=== PATIENT | male | born 1930 | race Caucasian/White ===

== ENCOUNTER 2021-11-17 20:38 | Inpatient (IN) | payer OTHER ==
[~2021-11-17] VITALS: Ht 167.6 cm; Wt 67.1 kg
[2021-11-17 20:38] VITALS: BP 109/72
--- NOTE | 2021-11-17 20:42 | NUR ---
PT XIMENA ALS. TAKEN TO BED 11
--- NOTE | 2021-11-17 20:43 | NUR ---
er assessing pt
--- NOTE | 2021-11-17 20:51 | NUR ---
slab stripper and x ray at bedside
--- NOTE | 2021-11-17 21:13 | NUR ---
PT TAKEN TO CT
--- NOTE | 2021-11-17 21:25 | NUR ---
PT RETURN FROM CT
[2021-11-17 21:37] LABS: BASOPHILS # (AUTO) 0.1 K/uL (0.00-0.22); BASOPHILS % (AUTO) 0.4 % (0.0-2.0); HEMATOCRIT 41.5 % (36-52); HEMOGLOBIN 13.7 g/dL (12.0-18.0); LYMPHOCYTES # (AUTO) 1.3 K/uL (2.0-11.5); LYMPHOCYTES % (AUTO) 5.9 % (20.5-51.1); MEAN CORPUSCULAR HEMOGLOBIN 29 pg (27-31); MEAN CORPUSCULAR HGB CONC 33 g/dL (33-37); MEAN CORPUSCULAR VOLUME 87.1 fL (80-94); MONOCYTES # (AUTO) 1.7 K/uL (0.8-1.0); MONOCYTES % (AUTO) 7.7 % (1.7-9.3); NEUTROPHILS # (AUTO) 19.2 K/uL (1.8-7.7); PLATELET COUNT (AUTO) 260 K/uL (140-450); RED BLOOD CELL COUNT(AUTO) 4.77 MIL/uL (4.20-6.10); RED CELL DISTRIBUTION WIDTH 14.6 % (11.6-13.7); WHITE BLOOD COUNT (AUTO) 22.4 K/uL (4.8-10.8)
[2021-11-17 22:00] LABS: ALBUMIN 2.7 g/dL (3.4-5.0); ANION GAP 14.4 (8-16); ASPARTATE AMINOTRANSFERASE 22 U/L (15-37); CARBON DIOXIDE 22.4 mmol/L (21-32); CHLORIDE 101 mmol/L (98-107); CREATININE 2.5 mg/dL (0.6-1.3); GLUCOSE 140 mg/dL (74-106); POTASSIUM 4.8 mmol/L (3.5-5.1); SODIUM SERUM 133 mmol/L (136-145); TOTAL BILIRUBIN 0.5 mg/dL (0.0-1.0); UREA NITROGEN, BLOOD 59 mg/dL (7-18)
--- NOTE | 2021-11-17 22:38 | NUR ---
89 Y/O MALE BIBA FROM HOME, C/O SOB XTODAY. PT STATE HE HAS BEEN PROGRESSIVELY WEAK FOR THE PAST 2 DAYS. PT IS A/OX4, GCS-15; UNLABORED BREATHING AND SPEAKING IN FULL SENTENCES, LUNGS CLEAR, + PROGRESSIVE COUGH, PULSOX 88 W/O SUPP O2. PER EMS PT PLACED ON 2 L/MIN VIA NC. SKIN IS PINK/WARM/DIAPHORETIC. PT NORMALLY USES WALKER BUT DUE TO WEAKNESS CANNOT AMBULATE. PT IS INCONTINENT X2. - FEVER OR CP. PT SEATED IN BED WITH HOB RAISED, BED IN LOEWEST POSITION, AND RAILS UP X2. FAMILY DOES NOT HAVE A PHONE. PT PICKED UP BY EMS AT [address] [facility], [id number] HX: COLON CA NKA MED: METOPROLOL, HCTZ, LIPITOR
[2021-11-17] MEDS ORDERED: NACL 0.9% 1,000 ML IV ONE (23:45)
[2021-11-17] MEDS ORDERED: cefTRIAXone 1,000 MG VIAL ONE (23:54)
--- NOTE | 2021-11-18 00:30 | NUR ---
ELSIE/MAXIMINO SWABBED AND HANDED TO BOTTOM BUFFER
--- NOTE | 2021-11-18 00:36 | NUR ---
RIKI FROM [facility] CALLED TO ASK FOR CLINICAL INFORMATION. FAX
--- NOTE | 2021-11-18 00:45 | NUR ---
BRIDAL CONSULTANT AT BEDSIDE
--- NOTE | 2021-11-18 00:55 | NUR ---
RECONCILE MEDS: UNABLE TO OBTAIN. PT IS A POOR HISTORIAN AND DOES NOT HAVE MED ON PERSON.
--- NOTE | 2021-11-18 00:57 | NUR ---
PT HAS OSTOMY ON HIS RLQ. PT STATES HE MOSTLY PRODUCES URINE THROUGH HIS OSTOMY DUE TO BLADDER REMOVAL SX.
[2021-11-18 03:21] LABS: APPEARANCE,URINE HAZY (CLEAR); BILIRUBIN,URINE NEGATIVE (NEGATIVE); BLOOD, URINE 3+ (NEGATIVE); COLOR,URINE YELLOW (YELLOW); LEUKOCYTE ESTERASE ,URINE 2+ (NEGATIVE); NITRITE, URINE POSITIVE (NEGATIVE); UGLUCOSE NEGATIVE (NEGATIVE)
[2021-11-18 03:36] LABS: RBC,URINE 50-80 /HPF (0-5)
[2021-11-18] MEDS ORDERED: ACETAMINOPHEN 325 MG TAB PO PRN (05:25)
[2021-11-18] MEDS ORDERED: ONDANSETRON 4 MG/2 ML VIAL IVP PRN (05:25)
[2021-11-18] MEDS: NACL 0.9% 1,000 ML IV SCH ×2 (05:55→21:17)
[2021-11-18] MEDS: hydrALAZINE 20 MG/ML VIAL IVP PRN ×2 (05:57→12:52)
[2021-11-18] MEDS ORDERED: PIPERACILLIN/TAZOBACTAM 3.375 GM in DEXTROSE 5% 50 ML IV SCH (06:00)
[2021-11-18] MEDS ORDERED: PIPERACILLIN/TAZOBACTAM 2.25 GM VIAL IV ONE (06:04)
[2021-11-18] MEDS: PIPERACILLIN/TAZOBACTAM 2.25 GM in DEXTROSE 5% 50 ML IV SCH ×2 (06:11→14:00)
--- NOTE | 2021-11-18 07:22 | NUR ---
GAVE TRANSFER OF CARE REPORT TO ARIADNE HERMAN
[2021-11-18 08:04] LABS: BASOPHILS % (AUTO) 0.2 % (0.0-2.0); HEMATOCRIT 40.6 % (36-52); HEMOGLOBIN 13.3 g/dL (12.0-18.0); LYMPHOCYTES # (AUTO) 0.5 K/uL (2.0-11.5); LYMPHOCYTES % (AUTO) 2.8 % (20.5-51.1); MEAN CORPUSCULAR HEMOGLOBIN 29 pg (27-31); MEAN CORPUSCULAR HGB CONC 33 g/dL (33-37); MEAN CORPUSCULAR VOLUME 87.7 fL (80-94); MONOCYTES # (AUTO) 1.1 K/uL (0.8-1.0); MONOCYTES % (AUTO) 5.9 % (1.7-9.3); NEUTROPHILS # (AUTO) 17.4 K/uL (1.8-7.7); NEUTROPHILS % (AUTO) 91.1 % (42.2-75.2); PLATELET COUNT (AUTO) 205 K/uL (140-450); RED BLOOD CELL COUNT(AUTO) 4.63 MIL/uL (4.20-6.10); RED CELL DISTRIBUTION WIDTH 14.9 % (11.6-13.7); WHITE BLOOD COUNT (AUTO) 19.1 K/uL (4.8-10.8)
[2021-11-18 08:10] LABS: ANION GAP 16.1 (8-16); CARBON DIOXIDE 21.2 mmol/L (21-32); CHLORIDE 106 mmol/L (98-107); CREATININE 2.4 mg/dL (0.6-1.3); GLUCOSE 138 mg/dL (74-106); POTASSIUM 4.3 mmol/L (3.5-5.1); SODIUM SERUM 139 mmol/L (136-145); UREA NITROGEN, BLOOD 60 mg/dL (7-18)
--- NOTE | 2021-11-18 08:16 | NUR ---
BEDSIDE REPORT GIVEN TO AAKASH RON FOR CONTINUATION OF CARE
--- NOTE | 2021-11-18 09:00 | NUR ---
RECEIVED REPORT FROM ER. ADMITTED 89 Y/O MALE FROM HOME WITH A CC OF SOB. ADMITTING DX OF LASHELL AND UTI. HX OF COLON CANCER. PT IS A POOR HISTORIAN AND PT'S SON ISN'T AWARE OF PT'S MEDICAL HX. PT AWAKE, AOX2, APPEARS WEAK, FOLLOWS COMMANDS, OCCASIONAL MUMBLED SPEECH. NO SOB ON 2L NC, LUNG SOUNDS DIMINISHED. NO C/O PAIN AT THIS TIME. WITH IV 22G ON LEFT UPPER CHEST. WILL START IVF NS 70CC/HR ORDERED. UROSTOMY PRESENT, DRAINING CLEAR DARK VAN URINE. ORIENTED TO HOSPITAL ENVIRONMENT. CALL LIGHT WITHIN REACH. SAFETY PRECAUTIONS IN PLACE
[2021-11-18] MEDS: hydroCHLOROthiazide 25 MG TAB PO SCH (10:38)
[2021-11-18 11:01] VITALS: BP 162/83
--- NOTE | 2021-11-18 11:20 | NUR ---
PT ASLEEP IN BED. NO APPARENT DISTRESS
--- NOTE | 2021-11-18 15:20 | NUR ---
PT ASLEEP IN BED, NO APPARENT DISTRESS
[2021-11-18 16:00] VITALS: BP 171/102
[2021-11-18] MEDS ORDERED: METOPROLOL 25 MG TAB ONE (16:54)
[2021-11-18] MEDS ORDERED: METOPROLOL 25 MG TAB PO SCH (17:10)
--- NOTE | 2021-11-18 18:00 | NUR ---
SEEN AND EXAMINED BY DR ROBBINS, ORDERS NOTED AND CARRIED OUT
--- NOTE | 2021-11-18 18:33 | NUR ---
PT AWAKE IN BED, NO C/O PAIN, NO SOB
[2021-11-18 18:45] LABS: ALBUMIN 2.5 g/dL (3.4-5.0); ANION GAP 16.1 (8-16); ASPARTATE AMINOTRANSFERASE 19 U/L (15-37); CARBON DIOXIDE 22.9 mmol/L (21-32); CHLORIDE 102 mmol/L (98-107); CREATININE 2.4 mg/dL (0.6-1.3); GLUCOSE 134 mg/dL (74-106); SODIUM SERUM 137 mmol/L (136-145); TOTAL BILIRUBIN 0.4 mg/dL (0.0-1.0); UREA NITROGEN, BLOOD 57 mg/dL (7-18)
[2021-11-18 18:54] LABS: APPEARANCE,URINE CLOUDY (CLEAR); COLOR,URINE YELLOW (YELLOW); PH,URINE 6.5 (5.0-9.0); UGLUCOSE NEGATIVE (NEGATIVE)
[2021-11-18 18:55] LABS: BILIRUBIN,URINE NEGATIVE (NEGATIVE); BLOOD, URINE 3+ (NEGATIVE); LEUKOCYTE ESTERASE ,URINE 2+ (NEGATIVE); NITRITE, URINE NEGATIVE (NEGATIVE)
[2021-11-18 18:56] LABS: RBC,URINE 20-50 /HPF (0-5); WBC,URINE TOO MANY TO COUNT /HPF (0-5)
[2021-11-18 21:00] VITALS: BP 179/85
[2021-11-18] MEDS ORDERED: MEROPENEM 1,000 MG in NACL 0.9% 50 ML IV SCH (21:00)
[2021-11-18] MEDS: SIMVASTATIN 40 MG TAB PO SCH (21:16)
[2021-11-18] MEDS: METOPROLOL 25 MG TAB PO SCH (21:16)
[2021-11-18 21:52] LABS: CREATININE,URINE RANDOM 25 mg/dL (30-125)
[2021-11-18 23:27] VITALS: BP 163/77
[2021-11-19 04:02] VITALS: BP 170/73
[2021-11-19] MEDS: hydrALAZINE 20 MG/ML VIAL IVP PRN (04:36)
--- NOTE | 2021-11-19 07:12 | NUR ---
PATIENT HAS BEEN SCREENED AND CATEGORIZED MODERATE NUTRITION RISK. PATIENT WILL BE SEEN WITHIN 3-5 DAYS OF ADMISSION. 11/20/21-11/22/21 THONG REYNAGA MS, RDN
[2021-11-19 08:00] VITALS: BP 132/75
[2021-11-19] MEDS: METOPROLOL 25 MG TAB PO SCH (09:00)
[2021-11-19] MEDS: hydroCHLOROthiazide 25 MG TAB PO SCH (09:00)
[2021-11-19] MEDS ORDERED: allopurinoL 300 MG TAB PO SCH ×2 (09:00)
[2021-11-19] MEDS: MEROPENEM 500 MG in NACL 0.9% 50 ML IV SCH ×2 (09:00→21:51)
[2021-11-19] MEDS ORDERED: cloNIDine-TTS2 0.2 MG/24 HR 1 EA PATCH TD SCH (09:00)
[2021-11-19] MEDS ORDERED: hydrALAZINE 25 MG TAB PO SCH (09:00)
[2021-11-19] MEDS: hydrALAZINE 25 MG TAB PO SCH ×2 (13:00→17:00)
[2021-11-19] MEDS: allopurinoL 100 MG TAB PO SCH (15:29)
--- NOTE | 2021-11-19 16:06 | NUR ---
P.T. NOTES P.T. EVAL COMPLETED; REFER TO EVAL FOR DETAILS.
--- NOTE | 2021-11-19 19:55 | NUR ---
RECEIVED PATIENT FROM AM SHIFT NURSE. PT SLEEPING , ON ROOM AIR. NO SOB NOTED. BREATHING EVEN UNLABORED. IVF NS INFUSING AT 70 ML/HR. UROSTOMY TUBE ON THE RIGHT SIDE DRAINING CLEAR YELLOW URINE. ALL SAFETY PRECAUTIONS ARE IN PLACE. CALL LIGHT WITHIN REACH. WILL CONTINUE TO MONITOR PT.
[2021-11-19 20:00] VITALS: BP 105/60
[2021-11-19] MEDS: METOPROLOL 50 MG TAB PO SCH (21:00)
[2021-11-19] MEDS: SIMVASTATIN 40 MG TAB PO SCH (21:51)
--- NOTE | 2021-11-19 21:56 | NUR ---
BP- 105/60 P-[address] GRAHAM WITH ORDER TO HOLD METOPROLOL FOR TONIGHT. ORDER NOTED CARRIED OUT.
--- NOTE | 2021-11-19 22:27 | NUR ---
SCHEDULED MEDICATIONS ADMINISTERED PER MD ORDER.
[2021-11-20] VITALS: BP 147/66
--- NOTE | 2021-11-20 00:30 | NUR ---
URINE SAMPLE COLLECTED SENT TO LAB.
[2021-11-20 03:22] LABS: APPEARANCE,URINE SL CLOUDY (CLEAR); BILIRUBIN,URINE NEGATIVE (NEGATIVE); BLOOD, URINE 1+ (NEGATIVE); COLOR,URINE YELLOW (YELLOW); LEUKOCYTE ESTERASE ,URINE 3+ (NEGATIVE); NITRITE, URINE NEGATIVE (NEGATIVE); PH,URINE 6.5 (5.0-9.0); UGLUCOSE NEGATIVE (NEGATIVE)
[2021-11-20 03:27] LABS: WBC,URINE TOO MANY TO COUNT /HPF (0-5)
[2021-11-20 04:00] VITALS: BP 162/69
[2021-11-20] MEDS: hydrALAZINE 20 MG/ML VIAL IVP PRN (05:02)
[2021-11-20 06:37] LABS: ALBUMIN 2.1 g/dL (3.4-5.0); ANION GAP 13.7 (8-16); ASPARTATE AMINOTRANSFERASE 10 U/L (15-37); CARBON DIOXIDE 20.4 mmol/L (21-32); CHLORIDE 109 mmol/L (98-107); CREATININE 1.8 mg/dL (0.6-1.3); GLUCOSE 95 mg/dL (74-106); MAGNESIUM 2.2 mg/dL (1.8-2.4); POTASSIUM 3.1 mmol/L (3.5-5.1); SODIUM SERUM 140 mmol/L (136-145); TOTAL BILIRUBIN 0.3 mg/dL (0.0-1.0)
[2021-11-20 06:42] LABS: UREA NITROGEN, BLOOD 65 mg/dL (7-18)
--- NOTE | 2021-11-20 06:42 | NUR ---
RECEIVED A CALL FROM [facility] (LAB) REPORTING CRITICAL LAB VALUE. NOTIFIED DR. GRAHAM, AWAITING FOR REPLY.
--- NOTE | 2021-11-20 07:15 | NUR ---
RECEIVED REPORT FROM CHIEF GUARD NURSE FOR CONTINUITY OF CARE. PT ASLEEP IN BED, EASILY AROUSABLE. BREATHING SYMMETRICAL ON ROOM AIR. WITH NIRMAL 22G ON SALINE LOCK, UROSTOMY ON RIGHT ABDOMINAL SIDE. FLACC O. CALL LIGHT WITHIN REACH. ALL SAFETY MEASURES IN PLACE.
--- NOTE | 2021-11-20 07:18 | NUR ---
BEDSIDE ENDORSEMENT GIVEN TO THE NEXT SHIFT FOR CONTINUITY OF CARE. PATIENT STABLE.
[2021-11-20 08:00] VITALS: BP 142/61
[2021-11-20] MEDS: hydroCHLOROthiazide 25 MG TAB PO SCH (08:45)
[2021-11-20] MEDS: METOPROLOL 50 MG TAB PO SCH (08:46)
[2021-11-20] MEDS: hydrALAZINE 25 MG TAB PO SCH ×3 (08:46→17:30)
[2021-11-20] MEDS: MEROPENEM 500 MG in NACL 0.9% 50 ML IV SCH ×2 (08:50→20:28)
--- NOTE | 2021-11-20 08:53 | NUR ---
SCHEDULED AM MEDICATIONS GIVEN ORDERED. NO C/O PAIN AT THIS TIME
--- NOTE | 2021-11-20 09:30 | NUR ---
LEFT MESSAGE TO DR GRAHAM REGARDING BNP 113 AND K 3.1, NO PRN FOR K. AWAITING RESPONSE
[2021-11-20 09:43] LABS: BASOPHILS % (AUTO) 0.1 % (0.0-2.0); EOSINOPHILS % (AUTO) 0.2 % (0.0-4.0); HEMATOCRIT 38.9 % (36-52); HEMOGLOBIN 12.8 g/dL (12.0-18.0); LYMPHOCYTES # (AUTO) 1.1 K/uL (2.0-11.5); LYMPHOCYTES % (AUTO) 7.2 % (20.5-51.1); MEAN CORPUSCULAR HEMOGLOBIN 29 pg (27-31); MEAN CORPUSCULAR HGB CONC 33 g/dL (33-37); MEAN CORPUSCULAR VOLUME 86.9 fL (80-94); MONOCYTES % (AUTO) 7.1 % (1.7-9.3); NEUTROPHILS # (AUTO) 12.5 K/uL (1.8-7.7); NEUTROPHILS % (AUTO) 85.4 % (42.2-75.2); PLATELET COUNT (AUTO) 244 K/uL (140-450); RED BLOOD CELL COUNT(AUTO) 4.47 MIL/uL (4.20-6.10); WHITE BLOOD COUNT (AUTO) 14.6 K/uL (4.8-10.8)
[2021-11-20 11:00] LABS: TOTAL PROTEIN URINE 63.4 MG/DL
--- NOTE | 2021-11-20 11:03 | NUR ---
PT TRANSFERRED TO [facility]
--- NOTE | 2021-11-20 11:16 | NUR ---
PHYSICAL THERAPY CO-SIGN The Physical Therapy Progress Notes documented by Sporting Goods Salesperson have been reviewed. Reviewed/Co-Signed by: Barbara Tijerina Documentation Done by: RAQUEL CASTREJON PTA Addendum: 11/20/21 at 1116 by Barbara Tijerina PT Amended: Links added.
[2021-11-20 12:00] VITALS: BP 142/67
[2021-11-20] MEDS ORDERED: POTASSIUM CHLORIDE 10 MEQ TABER PO SCH (13:05)
--- NOTE | 2021-11-20 13:07 | NUR ---
FOLLOWED UP REGARDING K, ORDER RECEIVED FOR KDUR 20MEQ.
[2021-11-20 16:00] VITALS: BP 156/70
--- NOTE | 2021-11-20 16:48 | NUR ---
PT ASLEEP IN BED. BREATHING SYMMETRICAL ON ROOM AIR. FLACC O. FREQUENT ROUNDS DONE.
--- NOTE | 2021-11-20 19:20 | NUR ---
ENDORSED PT TO SIGN SHOP SUPERVISOR NURSE FOR CONTINUITY OF CARE, IN STABLE CONDITION
--- NOTE | 2021-11-20 19:21 | NUR ---
RECEIVED PT REPORT FROM AM NURSE TALIA RN FOR CONTINUITY OF CARE. PT IS STABLE IN BED.A&OX1. RR EVEN WITH COARSE OPEN AIRWAY NO WHEEZES OR CRACKLES. HAS A PRODUCTIVE COUGH AT TIMES. DENIES PAIN. ON ROOM AIR WITH NO S/S OF ACUTE DISTRESS. GI INTACT. PT'S SKIN INTACT EXCEPT FOR UROSTOMY ON R SIDE. IV NIRMAL 22G S.L. ALL SAFETY MEASURES IN PLACE. BED IS IN LOW AND LOCKED POSITION. CALL LIGHT WITHIN REACH. ENCOURAGED TO CALL FOR ASSISTANCE. WILL CONTINUE TO MONITOR.
[2021-11-20 20:00] VITALS: BP 123/63
[2021-11-20] MEDS: LABETALOL 200 MG TAB PO SCH (20:27)
[2021-11-20] MEDS: SIMVASTATIN 40 MG TAB PO SCH (20:27)
--- NOTE | 2021-11-20 21:00 | NUR ---
HS MEDS GIVEN PT STABLE. RR EVEN AND UNLABORED WITH EQUAL CHEST RISE. ON RM AIR. CALL LIGHT WITHIN REACH . WILL CONTINUE TO MONITOR.
--- NOTE | 2021-11-20 22:14 | NUR ---
DR VERNON WROTE NEW ORDERS. FORTAZ 1000MG OBTAINED FROM ANALYTICS DIRECTOR AND HUNG PER ORDER. WILL CONTINUE TO MONITOR.
[2021-11-21] VITALS: BP 142/66
[2021-11-21 04:00] VITALS: BP 108/48
[2021-11-21 06:48] LABS: BASOPHILS % (AUTO) 0.2 % (0.0-2.0); EOSINOPHILS % (AUTO) 0.4 % (0.0-4.0); HEMOGLOBIN 12.8 g/dL (12.0-18.0); LYMPHOCYTES % (AUTO) 10.8 % (20.5-51.1); MEAN CORPUSCULAR HEMOGLOBIN 29 pg (27-31); MEAN CORPUSCULAR HGB CONC 33 g/dL (33-37); MONOCYTES # (AUTO) 0.9 K/uL (0.8-1.0); NEUTROPHILS # (AUTO) 7.6 K/uL (1.8-7.7); NEUTROPHILS % (AUTO) 79.6 % (42.2-75.2); PLATELET COUNT (AUTO) 243 K/uL (140-450); RED BLOOD CELL COUNT(AUTO) 4.49 MIL/uL (4.20-6.10); RED CELL DISTRIBUTION WIDTH 14.7 % (11.6-13.7); WHITE BLOOD COUNT (AUTO) 9.6 K/uL (4.8-10.8)
[2021-11-21 06:53] LABS: ANION GAP 14.5 (8-16); CARBON DIOXIDE 22.1 mmol/L (21-32); CHLORIDE 108 mmol/L (98-107); CREATININE 2.1 mg/dL (0.6-1.3); GLUCOSE 126 mg/dL (74-106); POTASSIUM 3.6 mmol/L (3.5-5.1); SODIUM SERUM 141 mmol/L (136-145)
[2021-11-21 06:56] LABS: UREA NITROGEN, BLOOD 70 mg/dL (7-18)
--- NOTE | 2021-11-21 07:00 | NUR ---
LAB REPORTED BUN-70H AND CREATININE- 2.1H. ENDORSE TO DAY SHIFT TO FOLLOW UP AND UPDATE DR. GRAHAM WHEN HE COMES IN. PT HAS A UTI AND VALUES ARE TRENDING UP.
--- NOTE | 2021-11-21 07:15 | NUR ---
RECEIVED REPORT FROM PLANT PACKER NURSE FOR CONTINUITY OF CARE. PT IN BED WATCHING TV AT THIS TIME. RESPIRATIONS ARE EVEN AND UNLABORED. PT IS ON ROOM AIR AT THIS TIME. NO SIGNS OF DISTRESS NOTED. PT IS ALERT AND ORIENTED X3. ABLE TO VERBALIZE NEEDS, ABLE TO FOLLOW COMMANDS. PT HAS UROSTOMY TO R SIDE. DRAINING YELLOW URINE. PT HAS SCATTERED BRUISING NOTED ON ADMISSION, AND SKIN IS INTACT. CALL LIGHT WITHIN REACH. ALL SAFETY MEASURES IN PLACE. WILL CONTINUE TO MONITOR.
[2021-11-21 08:00] VITALS: BP 145/43
[2021-11-21] MEDS: hydrALAZINE 25 MG TAB PO SCH ×3 (09:00→17:00)
[2021-11-21] MEDS: hydroCHLOROthiazide 25 MG TAB PO SCH (09:51)
[2021-11-21] MEDS: LABETALOL 200 MG TAB PO SCH ×2 (09:51→21:45)
--- NOTE | 2021-11-21 09:52 | NUR ---
ADMINISTERED SCHEDULED MEDICATIONS. EDUCATED PT ON MEDS ADMINISTERED. PT TOLERATED WELL. WILL CONTINUE TO MONITOR.
[2021-11-21] MEDS: allopurinoL 100 MG TAB PO SCH (09:53)
--- NOTE | 2021-11-21 10:50 | NUR ---
PHYSICAL THERAPY CO-SIGN The Physical Therapy Progress Notes documented by Biochemistry Specialist have been reviewed. Reviewed/Co-Signed by: Barbara Tijerina Documentation Done by: RAQUEL CASTREJON PTA Addendum: 11/21/21 at 1050 by Barbara Tijerina PT Amended: Links added.
--- NOTE | 2021-11-21 12:34 | NUR ---
DID ROUNDS ON PT. PT IN BED WATCHING TELEVISION AT THIS TIME. RESPIRATIONS ARE EVEN AND UNLABORED. NO COMPLAINTS OF PAIN OR DISCOMFORT. WILL CONTINUE TO MONITOR.
--- NOTE | 2021-11-21 13:58 | NUR ---
DC PLANNING SW ATTEMPTED TO MEET WITH PATIENT AT BEDSIDE, HOWEVER, PATIENT WAS UNABLE TO RESPOND TO SW PROMPTS. PATIENT DOES NOT HAVE AN EMERGENCY CONTACT ON FILE. SW SPOKE WITH PATIENTS NURSE WHO REPORTED SHE HAS NOT WITNESSED ANY VISITORS AT PATIENTS BEDSIDE. SW TO CALL [place] [employer] FOR A WELFARE CHECK AT PATIENTS HOME TO IDENTIFY CAREGIVER/EMERGENCY CONTACT. Addendum: 11/22/21 at 1106 by Jc JAMA SW OUTREACHED TO [facility] TO CONDUCT WELFARE CHECK TO IDENTIFY FAMILY MEMBERS/EMERGENCY CONTACT. VAN FROM [facility] REPORTED THAT THEY WOULD SEND OUT POLICE. SW/PD TO FOLLOW UP. Addendum: 11/23/21 at 1108 by Jc JAMA DC PLANNING PATIENT IS AN 89 YR OLD MALE ADMITTED TO [facility] ON 11/18 FOR UTI AND LASHELL SW MET WITH PATIENT AT BEDSIDE HOWEVER PATIENT WAS UNABLE TO PROVIDE INFORMATION NEEDED. PATIENT STRUGGLED WITH RESPONDING TO SW PROMPTS. LETTY SPOKE W/NURSES TO INQUIRE ON VISITORS FOR PATIENT PATIENT DID NOT HAVE EMERGENCY CONTACT ON FILE. LETTY CALLED [place] [employer] FOR WELFARE CHECK ON FAMILY. [place] [employer] MADE CONTACT WITH PATIENTS SON (MILLI CHOU) WHOM HE RESIDES WITH. MILLI CHOU PROVIDED PD AND SW WITH NEIGHBORS PHONE NUMBER FOR EMERGENCY CONTACT MILLI CHOU DID NOT HAVE A WORKING PHONE. PD CONDUCTED WELFARE CHECK AND DISCOVERED THAT HOME WAS IN DISARRAY, SMELLED OF URINE AND FECES. OFFICER JEFFREY REPORTED THAT HOME HAD RUNNING WATER, FOOD NECESSITIES, AND WORKING POWER. LETTY OUTREACHED TO PATIENTS NEIGHBOR, BONILLA WHO PROVIDED COLLATERAL INFORMATION. BONILLA REPORTED THAT MILLI HESS IS THE ORGANIC EXTRACTIONS TECHNICIAN FOR PATIENT AND PATIENTS SON, MILLI CHOU. BONILLA REPORTED THAT SHE HAS TRIED ASSISTING FAMILY SHE CAN HOWEVER, CAREGIVER DOES NOT PROVIDE THE REQUIRED CARE NEEDED FOR FAMILY. LAST VISIT FROM CAREGIVER WAS 5 DAYS PREVIOUS. BONILLA REPORTS THAT PATIENT REQUIRES MEDICAL ATTENTION AND VISITS WHICH CAREGIVER HAS BEEN UNABLE TO PROVIDE. BONILLA REPORTS CAREGIVER RESIDES IN [facility] AND HAS TRANSPORTATION ISSUES. BONILLA PROVIDED LETTY WITH CAREGIVER, MILLI HESS CONTACT INFO. LETTY OUTREACHED TO PATIENTS CAREGIVER, MILLI HESS WHO REPORTED THAT HE IS THE ORGANIC EXTRACTIONS TECHNICIAN FOR BOTH PATIENT AND MILLI CHOU (PATIENTS SON WHOM PATIENT RESIDES WITH). PATIENT REPORTS RESIDING IN [place] AND HAVING TRANSPORTATION ISSUES THAT STARTED IN JUL. CAREGIVER REPORTS RECEIVING HELP FROM FRIENDS IN ASSISTING WITH AIDING IN CARE. CAREGIVER REPORTED THAT PATIENT RECEIVES HOME HEALTH SERVICES WITH [facility] [phone] THAT BEGAN 6 MONTHS AGO. CAREGIVER REPORTS H.H PROVIDES CARE 1-2X WEEKLY. PATIENT REPORTS RECEIVING HELP WITH TAKING PATIENT TO DR FLOWERS AND REPORTS THAT PATIENT HAS A DR KERRYT SCHEDULED FOR 11/28/2021. CAREGIVER SELF REPORTED THAT AN APS REPORT WAS FILED IN [place] BY A NURSE WHO BELIEVED THERE WAS INADEQUATE FOOD IN THE HOME. CAREGIVER WAS UNSURE OF OUTCOME OF INVESTIGATION. CAREGIVER IS REPORTING THAT HE IS UNABLE TO PROVIDE PATIENT WITH THE CARE THAT IS NEEDED AND IS REQUESTING THAT PATIENT BE PLACED IN SNF. CM WORKING ON IDENTIFYING PLACEMENT AT THIS TIME. APS REPORT MADE BY LETTY AND SPOKE WITH ZEV AT [phone]. REFERRAL INTAKE NUMBER # [id number]
[2021-11-21] MEDS ORDERED: RENAL DOSING PER PHARMACY MC PRN (14:05)
--- NOTE | 2021-11-21 14:30 | NUR ---
DC PLANNIN YRS OLD MALE PATIENT WAS ADMITTED FROM HOME WITH A DX OF UTI, LASHELL . PATIENT HAS A HX OF COLON CA. CXR SHOWED NO ACUTE FINDINGS. RAPID COVID TEST NEGATIVE, CT HEAD SHOWED DIFFUSE CEREBRAL ATROPHY, RENAL ULTRASOUND NO HYDRONEPHROSIS. BLOOD AND URINE CULTURE PENDING. ADMINISTERED IVF, IV ABX ZOSYN AND CONTINUED HOME MEDS. CONSULTED WITH ID AND NEPHRO. DC PLAN TO RETURN HOME WHEN STABLE. CM TO FOLLOW Addendum: 11/22/21 at 1533 by Jackeline Paulino RN DC PLANNING: LETTY SPOKE WITH PT'S SON , STATED UNABLE TO TAKECARE OF HIM , REQUESTING HIS DAD TO GO TO SNF. ORDERED SNF EVAL FAXED TO [facility]. SPOKE WITH JOHANNA AT [facility] REQUESTING THE PHYSICAL THERAPY NOTES. FAXED TO [facility]. CM TO FOLLOW Addendum: 11/22/21 at 1534 by Jackeline Paulino RN DC PLANNING: FAXED THE REQUEST TO [facility]. ODELL TO FOLLOW Addendum: 11/23/21 at 1110 by Jackeline Paulino RN DC PLANNING: PATIENT IS ACCE[facility] [facility] [place] ROOM 118B. # TO GIVE REPORT [phone] RECEIVED AUTH # FOR TRANSPORT FROM HENNING AT [facility] [id number] . CALLED PT'S GRANDSON [phone] SPOKE WITH MILLI, NOTIFIED HIM THAT PATIENT IS ACCEPTED AT [facility] FOR A SHORT TERM STAY PER MILLI AGREED WITH [facility] AND GAVE TELEPHONE CONSENT FOR IM LETTER. ARRANGED TRANSPORT WITH [facility]ER[facility] GRADER TIME BETWEEN 2-3 PM. NOTIFIED LOUIS RON.
--- NOTE | 2021-11-21 15:56 | NUR ---
ASSISTED WITH CHANGING AND REPOSITIONING PT. PT TOLERATED WELL. NO COMPLAINTS OF PAIN OR DISCOMFORT. WILL CONTINUE TO MONITOR.
[2021-11-21 16:00] VITALS: BP 95/55
--- NOTE | 2021-11-21 19:01 | NUR ---
ENDORSED PT TO TANNING SALON ATTENDANT NURSE FOR CONTINUITY OF CARE. PT IS STABLE.
--- NOTE | 2021-11-21 19:03 | NUR ---
RECEIVED REPORT FROM AM NURSE FOR CONTINUITY OF CARE. PT IS AWAKE NO DISTRESS NOTED.RR EVEN AND UNLABORED WITH EQUAL CHEST RISE. NO SOB ON O2 2L/NC. ALL SAFETY MEASURES IN PLACE, IV SITE ON NIRMAL 22G. WILL CONTINUE TO MONITOR.
[2021-11-21] MEDS: SIMVASTATIN 40 MG TAB PO SCH (21:45)
--- NOTE | 2021-11-21 22:00 | NUR ---
HS MEDS GIVEN. PT REPOSITIONED FOR COMFORT. UROSTOMY IN RUQ DRAINING HAZY VAN URINE. NO ODOR. PT REMAINS IN BED. ALL SAFETY MEASURES IN PLACE. CALL LIGHT WITHIN REACH. WILL CONTINUE WITH FREQ ROUNDS.
[2021-11-22] VITALS: BP 99/44
[2021-11-22 07:23] LABS: ANION GAP 12.6 (8-16); CARBON DIOXIDE 23.1 mmol/L (21-32); CHLORIDE 109 mmol/L (98-107); CREATININE 2.2 mg/dL (0.6-1.3); GLUCOSE 93 mg/dL (74-106); POTASSIUM 3.7 mmol/L (3.5-5.1); SODIUM SERUM 141 mmol/L (136-145)
[2021-11-22 07:25] LABS: BASOPHILS # (AUTO) 0.1 K/uL (0.00-0.22); EOSINOPHILS # (AUTO) 0.6 K/uL (0-0.4); HEMOGLOBIN 11.4 g/dL (12.0-18.0); LYMPHOCYTES # (AUTO) 1.8 K/uL (2.0-11.5); MONOCYTES # (AUTO) 1.1 K/uL (0.8-1.0); NEUTROPHILS % (AUTO) 67.7 % (42.2-75.2)
--- NOTE | 2021-11-22 07:25 | NUR ---
ENDORSED REPORT TO AM NURSE FOR CONTINUITY OF CARE. PT IS STABLE.
[2021-11-22 07:27] LABS: BASOPHILS % (AUTO) 0.5 % (0.0-2.0); EOSINOPHILS % (AUTO) 5.7 % (0.0-4.0); HEMATOCRIT 34.7 % (36-52); MEAN CORPUSCULAR HEMOGLOBIN 28 pg (27-31); MEAN CORPUSCULAR HGB CONC 33 g/dL (33-37); MEAN CORPUSCULAR VOLUME 86.6 fL (80-94); MONOCYTES % (AUTO) 10.1 % (1.7-9.3); NEUTROPHILS # (AUTO) 7.5 K/uL (1.8-7.7); PLATELET COUNT (AUTO) 207 K/uL (140-450); RED BLOOD CELL COUNT(AUTO) 4.01 MIL/uL (4.20-6.10); RED CELL DISTRIBUTION WIDTH 14.6 % (11.6-13.7); WHITE BLOOD COUNT (AUTO) 11.1 K/uL (4.8-10.8)
--- NOTE | 2021-11-22 07:30 | NUR ---
RECEIVED REPORT FROM RELIEF DRILLER NURSE FOR CONTINUITY OF CARE. PATIENT AWAKE NO DISTRESS NOTED. RESPIRATION EVEN AND NOT LABORED NO SHORTNESS OF BREATH. ON 2L/MIN O2. ALL SAFETY MEASURE IN PLACE.IV SITE ON LEFT ARM SIDNEY 22.
[2021-11-22 07:32] LABS: UREA NITROGEN, BLOOD 78 mg/dL (7-18)
--- NOTE | 2021-11-22 07:32 | NUR ---
RECEIVED CALL FROM LAB FOR BUN OF 78, CR- 2.2 WAITING FOR RESPONSE.
[2021-11-22 08:00] VITALS: BP 117/50
--- NOTE | 2021-11-22 08:00 | NUR ---
PATIENT IS WITH PT AND HE SIT ON CHAIR AFTER THERAPY AND EATING BREAKFAST. CALL LIGHT WITH IN EASY REACH.
--- NOTE | 2021-11-22 08:00 | NUR ---
Patient's Plan of Care was discussed and reviewed with SWITCHBOARD WIRER: JANI FERNANDEZ
--- NOTE | 2021-11-22 09:11 | NUR ---
PHYSICAL THERAPY CO-SIGN The Physical Therapy Progress Notes documented by File Clerk have been reviewed. Reviewed/Co-Signed by: Barbara Tijerina Documentation Done by: RAQUEL CASTREJON PTA Addendum: 11/22/21 at 0912 by Barbara Tijerina PT Amended: Links added.
[2021-11-22] MEDS: hydroCHLOROthiazide 25 MG TAB PO SCH (09:35)
[2021-11-22] MEDS: LABETALOL 200 MG TAB PO SCH ×2 (09:35→21:02)
--- NOTE | 2021-11-22 09:38 | NUR ---
GIVEN ORAL MEDICATION TOLERATED WELL SITTING ON CHAIR AND WATCHING TV.
--- NOTE | 2021-11-22 09:39 | NUR ---
SEEN BY DR. BREAUX DISCONTINUE CLONIDINE AND HYDRALAZINE ORDER.
[2021-11-22] MEDS ORDERED: NACL 0.9% 1,000 ML IV SCH (12:20)
[2021-11-22] MEDS ORDERED: NACL 0.9% 500 ML IV ONE (13:00)
--- NOTE | 2021-11-22 14:22 | NUR ---
11/22/21 RD INITIAL ASSESSMENT COMPLETED PLEASE REFER TO NUTRITION ASSESSMENT UNDER CARE ACTIVITY FOR ESTIMATED NUTRITIONAL NEEDS. 1. CONTINUE REGULAR DIET TOLERATED 2. RECOMMEND NEPRO BID FOR NUTRITION SUPPORT 3. MONITOR RENAL LAB VALUES -IF ALTERED, RECOMMEND RENAL DIET 4. RD TO FOLLOW-UP 3-5 DAYS, MODERATE RISK JANA SANTAMARIA, RD
[2021-11-22 16:00] VITALS: BP 114/84
--- NOTE | 2021-11-22 16:30 | NUR ---
PATIENT ALERT ABLE TO MAKE NEEDS KNOWN RESPIRATION EVEN AND NOT LABORED NO SHORTNESS OF BREATH. PATIENT PUT IV ON RIGHT FORE ARM SIDNEY 22. IV HYDRATION STARTED.
--- NOTE | 2021-11-22 17:25 | NUR ---
GAVE REPORT TO CHRISTMAS TREE FARMER NURSE FOR CONTINUITY OF CARE.
--- NOTE | 2021-11-22 19:30 | NUR ---
GET THE REPORT FROM MORNING NURSE, PATIENT IS LYING ON BED, PATIENT IA ALERT ORIENTED X2 , CALL LIGHT IS WITHIN THE REACH, WILL CONTINUE TO MONITOR PATIENT.
[2021-11-22 20:00] VITALS: BP 111/57
--- NOTE | 2021-11-22 20:56 | NUR ---
PATIENT IS LYING ON BED, NO ANY COMPLAIN OF PAIN OR SHORTNESS OF BREATH AT THIS TIME, VITAL SIGN IS WITHIN THE NORMAL RANGE, ALL SCHEDULE MEDICATION IS GIVEN PER DOCTOR ORDER, CALL LIGHT IS WITHIN THE REACH, WILL CONTINUE TO MONITOR PATIENT.
[2021-11-22] MEDS: SIMVASTATIN 40 MG TAB PO SCH (21:02)
--- NOTE | 2021-11-23 00:11 | NUR ---
PATIENT IS LYING ON BED, NO ANY COMPLAIN OF PAIN OR SHORTNESS OF BREATH AT THIS TIME, CALL LIGHT IS WITHIN THE REACH, WILL CONTINUE TO MONITOR PATIENT
[2021-11-23 04:00] VITALS: BP 115/44
--- NOTE | 2021-11-23 04:07 | NUR ---
PATIENT IS LYING ON BED, VITAL SIGN IS WITHIN THE NORMAL RANGE , NO ANY COMPLAIN OF PAIN OR SHORTNESS OF BREATH AT THIS TIME,CALL LIGHT IS WITHIN THE REACH, WILL CONTINUE TO MONITOR PATIENT.
--- NOTE | 2021-11-23 05:48 | NUR ---
ALL SCHEDULE MEDICATION IS GIVEN PER DOCTOR ORDER, CALL LIGHT IS WITHIN THE REACH, WILL CONTINUE TO MONITOR PATIENT.
--- NOTE | 2021-11-23 07:17 | NUR ---
GAVE REPORT TO MORNING NURSE LOUIS FOR CONTINUOS OF CARE, PATIENT IS STABLE.
--- NOTE | 2021-11-23 07:18 | NUR ---
RECEIVED REPORT FROM WAIST PRESSER NURSE FOR CONTINUITY OF CARE. PT IS AWAKE, IN BED. BREATHING EVEN AND UNLABORED AT ROOM AIR. IV SITE AT RFA 22G. PT HAS UROSTOMY BAG, DRAINED 250ML OF URINE. CALL LIGHT WITHIN REACH. SAFETY MEASURES IN PLACE. WILL CONTINUE TO MONITOR.
[2021-11-23 07:37] LABS: HEMATOCRIT 33.5 % (36-52); HEMOGLOBIN 11.1 g/dL (12.0-18.0); MEAN CORPUSCULAR HEMOGLOBIN 29 pg (27-31); MEAN CORPUSCULAR HGB CONC 33 g/dL (33-37); MEAN CORPUSCULAR VOLUME 86.6 fL (80-94); PLATELET COUNT (AUTO) 217 K/uL (140-450); RED BLOOD CELL COUNT(AUTO) 3.87 MIL/uL (4.20-6.10); RED CELL DISTRIBUTION WIDTH 14.8 % (11.6-13.7); WHITE BLOOD COUNT (AUTO) 10.4 K/uL (4.8-10.8)
[2021-11-23 07:41] LABS: ANION GAP 13.2 (8-16); CHLORIDE 107 mmol/L (98-107); CREATININE 2.1 mg/dL (0.6-1.3); GLUCOSE 93 mg/dL (74-106); POTASSIUM 4.2 mmol/L (3.5-5.1); SODIUM SERUM 141 mmol/L (136-145)
--- NOTE | 2021-11-23 08:00 | NUR ---
Patient's Plan of Care was discussed and reviewed with Haritha NUNO
[2021-11-23 08:21] LABS: UREA NITROGEN, BLOOD 75 mg/dL (7-18)
--- NOTE | 2021-11-23 08:28 | NUR ---
LAB CALLED WITH CRITICAL VALUE: BUN 75 NURSE MADE AWARE
[2021-11-23] MEDS: allopurinoL 100 MG TAB PO SCH (08:38)
[2021-11-23] MEDS: LABETALOL 200 MG TAB PO SCH (08:38)
--- NOTE | 2021-11-23 08:45 | NUR ---
ADMINISTERED SCHEDULED MORNING MEDS. PT TEACHING GIVEN. PT VERBALIZED UNDERSTANDING. PT TOLERATED WELL. LEFT PT SITTING IN BED, EATING BREAKFAST. CALL LIGHT WITHIN REACH. SAFETY MEASURES IN PLACE.
--- NOTE | 2021-11-23 08:46 | NUR ---
CRITICAL LAB VALUE FOR BUN 75. TRENDING DOWN.
--- NOTE | 2021-11-23 09:10 | NUR ---
PT WITH PHYSICAL THERAPIST.
[2021-11-23 09:14] LABS: LYMPHOCYTES % (AUTO) 16.9 % (20.5-51.1); MONOCYTES % (AUTO) 9.6 % (1.7-9.3); NEUTROPHILS % (AUTO) 67.5 % (42.2-75.2)
[2021-11-23 09:15] LABS: BASOPHILS % (AUTO) 0.4 % (0.0-2.0); EOSINOPHILS # (AUTO) 0.6 K/uL (0-0.4); EOSINOPHILS % (AUTO) 5.6 % (0.0-4.0); LYMPHOCYTES # (AUTO) 1.8 K/uL (2.0-11.5)
[2021-11-23 09:18] LABS: EOSINOPHILS % (MANUAL) 4 % (0-4); LYMPHOCYTES % (MANUAL) 18 % (20-46); MONOCYTES % (MANUAL) 10 % (5-12)
[2021-11-23] MEDS ORDERED: LEVO-315 PO (10:28)
[2021-11-23] MEDS ORDERED: TRA200 PO (10:28)
[2021-11-23] MEDS ORDERED: SIMV-34 PO (10:28)
[2021-11-23] MEDS ORDERED: CLON0.2T47 TD (10:28)
[2021-11-23 12:04] VITALS: BP 109/40
--- NOTE | 2021-11-23 12:05 | NUR ---
PT SITTING IN BED, EATING LUNCH INDEPENDENTLY. NO DISTRESS NOTED. NO COMPLAINT OF PAIN. CALL LIGHT WITHIN REACH. SAFETY MEASURES I PLACE. WILL CONTINUE TO MONITOR.
--- NOTE | 2021-11-23 13:07 | NUR ---
GAVE REPORT TO ZEV [facility].
--- NOTE | 2021-11-23 13:34 | NUR ---
DISCHARGE PAPER EXPLAINED TO THE PT. PT VERBALIZED UNDERSTANDING. PT GETTING READY TO LEAVE.
--- NOTE | 2021-11-23 14:25 | NUR ---
PT DISCHARGED TO [facility]. PT LEFT VIA TRANSPO. [facility] REMOVED IV CATHETER IS INTACT. REMOVED WRIST BAND. ALL BELONGINGS TAKEN UPON D/C. PT IS STABLE.
--- NOTE | 2021-11-23 16:46 | NUR ---
PHYSICAL THERAPY CO-SIGN The Physical Therapy Progress Notes documented by Book Canvasser have been reviewed. Reviewed/Co-Signed by: Barbara Tijerina Documentation Done by: RAQUEL CASTREJON PTA Addendum: 11/23/21 at 1646 by Barbara Tijerina PT Amended: Links added.
== END 2021-11-23 14:25 | DRG 871 ==
LOC: MED 20:38 → MTU 11-18 01:29 → OBSVTOIN 11-20 11:18
PROVIDERS: ADMIT Student in an Organized Health Care Education/Training Program; ATTEND Student in an Organized Health Care Education/Training Program
DX: A41.52 Sepsis due to Pseudomonas (principal); N17.0 Acute kidney failure with tubular necrosis; E43 Unspecified severe protein-calorie malnutrition; N39.0 Urinary tract infection, site not specified; F03.90 Unspecified dementia, unspecified severity, without behavioral disturbance, psychotic disturbance, mood disturbance, and anxiety; E83.51 Hypocalcemia; I12.9 Hypertensive chronic kidney disease with stage 1 through stage 4 chronic kidney disease, or unspecified chronic kidney disease; N18.31 Chronic kidney disease, stage 3a; R65.20 Severe sepsis without septic shock; Z20.822 Contact with and (suspected) exposure to COVID-19; E86.0 Dehydration; E87.6 Hypokalemia; D63.8 Anemia in other chronic diseases classified elsewhere; Z85.038 Personal history of other malignant neoplasm of large intestine; Z68.23 Body mass index [BMI] 23.0-23.9, adult; Z93.0 Tracheostomy status; B96.5 Pseudomonas (aeruginosa) (mallei) (pseudomallei) as the cause of diseases classified elsewhere
CPT/HCPCS: 36415; 70450; 71045; 76770; 80048; 80053; 81001; 82570; 83605; 83735; 83880; 84100; 84156; 84300; 84484; 85025; 87040; 87081; 87086; 93005; 96361; 96365; 97110; 97112; 97116; 97530; 99285; G0378; J0360; J0696; J0713; J2185; J2543; J7060; Q0092